=== PATIENT | male | born 1960 | race African-American/Black ===

== ENCOUNTER → 2017-05-08 | Outpatient (CLI) | payer OTHER ==
[~2017-05-08] MED LIST: DILA100C PO; NAPR500T PO; ROBA500T PO
--- NOTE | 2017-05-09 02:58 | REP ---
Clinical: Seizure. Technique: AP, lateral views. Findings: Alignment and kyphosis is maintained. Age related changes are appreciated along with mild nonacute compression deformity at T11 which is stable compared to CT dated 03/15/2017. Impression: Age related changes. Old T11 compression deformity. Signed by Aj Renee MD 05/09/2017 02:50 A
--- NOTE | 2017-05-09 02:58 | REP ---
Clinical: Seizure. Technique: AP, lateral, bilateral oblique, and coned-down views. Findings: Alignment and lordosis is maintained. The vertebral bodies including transverse process and spinous processes are intact and normal. There is no evidence for acute fracture / compression injury or subluxation. No evidence for spondylolysis or spondylolisthesis. No significant degenerative change is noted. Old T11 compression deformity. Impression: Normal lumbosacral spine radiograph series. Old T11 compression deformity. Signed by Aj Renee MD 05/09/2017 02:50 A
--- NOTE | 2017-05-09 03:01 | REP ---
Clinical: Seizure. Technique: AP, lateral, flexion/extension, bilateral oblique, and open-mouth views. Findings: Alignment and lordosis is maintained. There is no evidence for acute fracture / compression injury or subluxation. Mild/moderate multilevel degenerative changes are appreciated. Oblique views demonstrate patent neural foramen. Open mouth view demonstrates normal C1-C2 articulation and odontoid process. Impression: Mild/moderate multilevel degenerative changes are appreciated. Signed by Aj Renee MD 05/09/2017 02:52 A
--- NOTE | 2017-05-09 03:03 | REP ---
Clinical: Seizure. Technique: Internal rotation, external rotation, and Y view left shoulder. Findings: No acute fracture or dislocation. The acromioclavicular and glenohumeral joints are intact. Mild cortical changes consistent with age related degenerative changes. Sub acromial space is normal. Surrounding soft tissues are unremarkable. Impression: Age related changes. No acute fracture or dislocation. Signed by Aj Renee MD 05/09/2017 02:55 A
--- NOTE | 2017-05-09 03:06 | REP ---
Clinical: Seizure. Technique: AP and Lateral views of the right tibia/fibula. Findings: Old fracture of the proximal tibia. No acute fracture or dislocation. Impression: No acute fracture or dislocation. Signed by Aj Renee MD 05/09/2017 02:57 A
== END ==
LOC: M ADAMS 15:38
PROVIDERS: ATTEND Physician Assistant Medical
DX: G40.909 Epilepsy, unspecified, not intractable, without status epilepticus (principal); M79.604 Pain in right leg; M25.512 Pain in left shoulder; M54.9 Dorsalgia, unspecified

== ENCOUNTER → 2017-08-08 | Outpatient (REF) | payer OTHER ==
[2017-08-08 12:49] LABS: BASO % 0.7 % (0.0-1.0); EOS # 0.3 10^3/uL (0.0-0.50); EOS % 5.8 % (0.0-3.0); HEMATOCRIT 44.8 % (42.0-52.0); HEMOGLOBIN 14.6 g/dl (14.0-18.0); IMMATURE GRANULOCYTE % 0.4 % (0-3.0); LYMPH # 2.7 10^3/uL (1.5-4.5); LYMPH % 49.8 % (24.0-44.0); MEAN CORPUSCULAR HEMOGLOBIN 28.7 pg (27.0-33.0); MEAN CORPUSCULAR HGB CONC 32.6 g/dl (32.0-36.5); MEAN CORPUSCULAR VOLUME 88.2 fl (80.0-96.0); MONO # 0.4 10^3/uL (0.0-0.8); MONO % 8.2 % (0.0-5.0); NEUTROPHILS # 1.9 10^3/uL (1.8-7.7); NEUTROPHILS % 35.1 % (36.0-66.0); PLATELET COUNT, AUTOMATED 112 10^3/uL (150-450); RED BLOOD COUNT 5.08 10^6/uL (4.30-6.10); RED CELL DISTRIBUTION WIDTH 13.7 % (11.5-14.5); WHITE BLOOD COUNT 5.3 10^3/uL (4.0-10.0)
[2017-08-08 13:50] LABS: ALBUMIN/GLOBULIN RATIO 1.03 (1.00-1.93); ALKALINE PHOSPHATASE 61 U/L (45-117); ALT/SGPT 45 U/L (12-78); ANION GAP 10 MEQ/L (8-16); AST/SGOT 31 U/L (7-37); BILIRUBIN,TOTAL 0.3 MG/DL (0.2-1.0); BLOOD UREA NITROGEN 15 MG/DL (7-18); CALCIUM LEVEL 9.3 MG/DL (8.5-10.1); CARBON DIOXIDE LEVEL 24 MEQ/L (21-32); CHLORIDE LEVEL 108 MEQ/L (98-107); CHOLESTEROL LEVEL 198 MG/DL (<200); CHOLESTEROL RISK RATIO 3.473 (<5); CREATININE FOR GFR 1.31 MG/DL (0.70-1.30); GLOMERULAR FILTRATION RATE > 60.0 (>56); GLUCOSE, FASTING 96 MG/DL (70-100); HDL CHOLESTEROL 57 MG/DL (>40); NON-HDL-C 141 MG/DL; PHENYTOIN (DILANTIN) < 0.4 UG/ML (10.0-20.0); POTASSIUM SERUM 4.4 MEQ/L (3.5-5.1); SODIUM LEVEL 142 MEQ/L (136-145); TOTAL PROTEIN 7.9 GM/DL (6.4-8.2); TRIGLYCERIDES LEVEL 85 MG/DL (<150)
[2017-08-08 14:11] LABS: TOTAL 25(OH) VITAMIN D 37.6 NG/ML (30.0-100.0)
== END ==
LOC: M SFHCADAM 09:28
DX: Z82.49 Family history of ischemic heart disease and other diseases of the circulatory system (principal); G40.909 Epilepsy, unspecified, not intractable, without status epilepticus

== ENCOUNTER → 2018-02-17 | Outpatient (REF) | payer OTHER ==
[2018-02-17 19:20] LABS: BASO % 0.8 % (0.0-1.0); EOS # 0.1 10^3/uL (0.0-0.50); EOS % 2.9 % (0.0-3.0); HEMATOCRIT 45.4 % (42.0-52.0); HEMOGLOBIN 14.5 g/dl (13.5-17.5); IMMATURE GRANULOCYTE % 0.2 % (0-3.0); LYMPH # 2.6 10^3/uL (1.5-4.5); LYMPH % 53.9 % (24.0-44.0); MEAN CORPUSCULAR HEMOGLOBIN 29.2 pg (27.0-33.0); MEAN CORPUSCULAR HGB CONC 31.9 g/dl (32.0-36.5); MEAN CORPUSCULAR VOLUME 91.5 fl (80.0-96.0); MONO # 0.4 10^3/uL (0.0-0.8); NEUTROPHILS # 1.6 10^3/uL (1.8-7.7); NEUTROPHILS % 33.2 % (36.0-66.0); PLATELET COUNT, AUTOMATED 134 10^3/uL (150-450); RED BLOOD COUNT 4.96 10^6/uL (4.30-6.10); RED CELL DISTRIBUTION WIDTH 13.4 % (11.5-14.5); WHITE BLOOD COUNT 4.9 10^3/uL (4.0-10.0)
[2018-02-17 19:35] LABS: ALBUMIN/GLOBULIN RATIO 1.05 (1.00-1.93); ALKALINE PHOSPHATASE 60 U/L (45-117); ALT/SGPT 34 U/L (12-78); ANION GAP 6 MEQ/L (8-16); AST/SGOT 22 U/L (7-37); BILIRUBIN,TOTAL 0.3 MG/DL (0.2-1.0); BLOOD UREA NITROGEN 16 MG/DL (7-18); C REACTIVE PROTEIN QUANTITATIV < 0.30 MG/DL (0.00-0.30); CARBON DIOXIDE LEVEL 26 MEQ/L (21-32); CHLORIDE LEVEL 109 MEQ/L (98-107); CREATININE FOR GFR 1.26 MG/DL (0.70-1.30); GLOMERULAR FILTRATION RATE > 60.0 (>56); GLUCOSE, FASTING 84 MG/DL (70-100); POTASSIUM SERUM 4.5 MEQ/L (3.5-5.1); RHEUMATOID FACTOR QUANT < 10.0 IU/ML (<15.0); SODIUM LEVEL 141 MEQ/L (136-145); TOTAL PROTEIN 7.8 GM/DL (6.4-8.2)
[2018-02-17 20:25] LABS: ERYTHROCYTE SEDIMENTATION RATE 9 mm/hr (0-20)
[2018-02-20 00:08] LABS: ANA (HEP2) Negative (.); Lyme Disease IgG Ab 18 kDa Ban Absent (.); Lyme Disease IgG Ab 23 kDa Ban Absent (.); Lyme Disease IgG Ab 28 kDa Ban Absent (.); Lyme Disease IgG Ab 30 kDa Ban Absent (.); Lyme Disease IgG Ab 39 kDa Ban Absent (.); Lyme Disease IgG Ab 41 kDa Ban Absent (.); Lyme Disease IgG Ab 45 kDa Ban Absent (.); Lyme Disease IgG Ab 58 kDa Ban Absent (.); Lyme Disease IgG Ab 66 kDa Ban Absent (.); Lyme Disease IgG Ab 93 kDa Ban Absent (.); Lyme Disease IgG West Blot Int Negative (.); Lyme Disease IgG/IgM Antibodie <0.91 ISR (0.00-0.90); Lyme Disease IgM Ab 23 kDa Ban Present (.); Lyme Disease IgM Ab 39 kDa Ban Absent (.); Lyme Disease IgM Ab 41 kDa Ban Absent (.); Lyme Disease IgM Ab Quantitati 0.87 index (0.00-0.79); Lyme Disease IgM West Blot Int Negative (.)
[2018-02-20 00:08] LABS: CYCLIC CITRULLINATED PEPTIDE 9 units (0-19)
== END ==
LOC: M SFHCADAM 14:07
DX: M79.604 Pain in right leg (principal); M25.512 Pain in left shoulder; M54.5 Low back pain

== ENCOUNTER → 2018-07-08 | Outpatient (REF) ==
[~2018-07-08] MED LIST changes: +NAPR-50 PO; -NAPR500T PO
--- NOTE | 2018-07-09 02:26 | REP ---
Clinical: Pain. Technique: Internal rotation, external rotation, and Y view of the left shoulder. Findings: Early moderate cortical irregularity and spurring at the acromioclavicular joint is appreciated. Humeral head appears intact and normal. Subtle blunting to the calcified glenoid rim identified. No periarticular calcifications or loose bodies. Surrounding soft tissues are unremarkable. Impression: Mild arthritic degenerative changes. Electronically Signed by Aj Renee MD 07/09/2018 02:18 A
--- NOTE | 2018-07-09 02:48 | REP ---
Clinical: Back pain. Technique: AP, lateral, coned-down views of the lumbosacral spine. Findings: Alignment and lordosis maintained. Vertebral bodies are intact. No acute fracture / compression injury or subluxation. Disc space narrowing with endplate sclerosis and hypertrophic facet changes at L5-S1 cannot be excluded. Remainder examination appears relatively normal for age. Impression: Cannot exclude mild/moderate degenerative spondylosis at L5-S1. Electronically Signed by Aj Renee MD 07/09/2018 02:40 A
== END ==
LOC: M SMT 14:28
PROVIDERS: ATTEND Internal Medicine
DX: Z02.89 Encounter for other administrative examinations (principal)

== ENCOUNTER → 2018-07-31 | Outpatient (REF) | payer OTHER | LOC: M SFHCADAM 13:36 | PROVIDERS: ATTEND Physician Assistant Medical | DX: G40.909 Epilepsy, unspecified, not intractable, without status epilepticus (principal); Z53.9 Procedure and treatment not carried out, unspecified reason ==

== ENCOUNTER 2019-01-10 17:02 | Emergency (ER) | payer OTHER ==
[~2019-01-10] VITALS: Ht 170.2 cm; Wt 90.9 kg
[~2019-01-10 17:02] MED LIST changes: -NAPR-50 PO; +NAPR-837 PO
[2019-01-10 17:15] VITALS: BP 133/71
[2019-01-10] MEDS ORDERED: NS 1,000 ML IV ONE (17:30)
[2019-01-10] MEDS ORDERED: ISOVUE-370 76% 100ML VIAL (Q9967) As Ordered ONE ×2 (17:33→17:48)
[2019-01-10] MEDS ORDERED: ONDANSETRON 4MG/2ML VIAL (J2405) As Ordered ONE (17:59)
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
[2019-01-10] MEDS ORDERED: ONDANSETRON 4MG/2ML VIAL (J2405) IV ONE (18:15)
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
[2019-01-10] MEDS ORDERED: CYCLOBENZAPRINE 10 MG TAB PO ONE (18:45)
[2019-01-10] MEDS ORDERED: KETOROLAC 30 MG/ML VIAL (J1885) IV ONE (18:45)
[2019-01-10] MEDS ORDERED: CYCL10TA PO (18:48)
[2019-01-10] MEDS ORDERED: IBUP-1022 PO (18:48)
[2019-01-10] MEDS ORDERED: NORCO 5/325MG TABLET (BULK FOR ED) PO ONE (19:00)
== END 2019-01-10 19:39 | disposition home or self-care (01) ==
LOC: M ED 17:02 → EDBD 17:02 → M ED 19:39
DX: M62.838 Other muscle spasm (principal); F33.9 Major depressive disorder, recurrent, unspecified; G40.909 Epilepsy, unspecified, not intractable, without status epilepticus; Z79.899 Other long term (current) drug therapy; F17.210 Nicotine dependence, cigarettes, uncomplicated
CPT/HCPCS: 70450; 71260; 72125; 74177; 80047; 96361; 96374; 96375; 99284; J1885; J2405; Q9967

== ENCOUNTER → 2019-01-21 | Outpatient (CLI) | payer OTHER ==
[~2019-01-21] MED LIST changes: +CYCL10TA PO; +IBUP-1022 PO
--- NOTE | 2019-01-21 10:31 | REP ---
Clinical: Right shoulder pain. Technique: Internal rotation, external rotation, and Y view of the right shoulder. Findings: Age-related arthritic changes include cortical irregularity at the acromioclavicular joint with subtle inferior spurring as well as increase sclerosis and blunting to the calcified glenoid rim. The subacromial space is normal. Small calcification encasing to the humeral greater tuberosity suggests mild calcific tendinopathy. Impression: Mild degenerative changes with possible mild calcific tendinopathy. Electronically Signed by Aj Renee MD 01/21/2019 10:23 A
== END ==
LOC: M ADAMS 10:09
PROVIDERS: ATTEND Physician Assistant Medical
DX: M25.511 Pain in right shoulder (principal)

== ENCOUNTER → 2019-02-11 | Outpatient (REF) | payer OTHER ==
[2019-02-11 17:16] LABS: BASO % 0.8 % (0.0-1.0); EOS # 0.5 10^3/uL (0.0-0.5); EOS % 10.6 % (0.0-3.0); HEMATOCRIT 46.3 % (42.0-52.0); HEMOGLOBIN 14.7 g/dl (13.5-17.5); LYMPH # 2.5 10^3/uL (1.5-5.0); MEAN CORPUSCULAR HEMOGLOBIN 29.4 pg (27.0-33.0); MEAN CORPUSCULAR HGB CONC 31.7 g/dl (32.0-36.5); MEAN CORPUSCULAR VOLUME 92.6 fl (80.0-96.0); MONO # 0.5 10^3/uL (0.0-0.8); MONO % 9.5 % (0.0-5.0); NEUTROPHILS # 1.3 10^3/uL (1.5-8.5); NEUTROPHILS % 27.9 % (36.0-66.0); PLATELET COUNT, AUTOMATED 128 10^3/uL (150-450); WHITE BLOOD COUNT 4.8 10^3/uL (4.0-10.0)
[2019-02-11 18:04] LABS: ALBUMIN 3.8 GM/DL (3.2-5.2); ALT/SGPT 34 U/L (12-78); BILIRUBIN,TOTAL 0.3 MG/DL (0.2-1.0); BLOOD UREA NITROGEN 13 MG/DL (7-18); CARBON DIOXIDE LEVEL 31 MEQ/L (21-32); CHLORIDE LEVEL 106 MEQ/L (98-107); CREATININE FOR GFR 1.27 MG/DL (0.70-1.30); GLOMERULAR FILTRATION RATE > 60.0 (>49); GLUCOSE, FASTING 90 MG/DL (70-100); POTASSIUM SERUM 4.1 MEQ/L (3.5-5.1); SODIUM LEVEL 142 MEQ/L (136-145); TOTAL PROTEIN 7.6 GM/DL (6.4-8.2)
[2019-02-11 18:05] LABS: PHENYTOIN (DILANTIN) 0.7 UG/ML (10.0-20.0)
== END ==
LOC: M LABNEURO 12:05
PROVIDERS: ATTEND Psychiatry & Neurology Neurology
DX: R56.9 Unspecified convulsions (principal)

== ENCOUNTER → 2019-05-25 | Outpatient (CLI) | payer OTHER ==
--- NOTE | 2019-05-25 10:27 | REP ---
INDICATION: Osteoarthritis PROCEDURE: MR lumbar spine without contrast COMPARISON STUDIES: No prior similar studies FINDINGS: On the sagittal T2-weighted images, no limiting canal stenosis. Vertebral heights and disc heights are preserved. No shamir malalignments. Conus ends normally at L1 level. On review of axial images, At L1-2, no significant canal or foraminal narrowing At L2-3, no significant canal or foraminal narrowing At L3-4, disc bulge with mild canal narrowing and mild bilateral foraminal narrowing At L4-5 disc bulge with mild canal narrowing and mild bilateral foraminal narrowing At L5 S1 no significant canal or foraminal narrowing. On the STIR images, no significant STIR signal abnormality to suggest soft tissue or ligamentous injury. There is a 2 cm cysts in the right kidney. A renal cyst on the left is incompletely imaged. CONCLUSION: No acute findings. Minor degenerative changes. Electronically Signed by Bharathi Delgado MD 05/25/2019 10:19 A
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
== END ==
LOC: M RAD 08:47
PROVIDERS: ATTEND Physician Assistant
DX: M19.90 Unspecified osteoarthritis, unspecified site (principal)

== ENCOUNTER → 2020-03-10 | Outpatient (REF) | payer OTHER ==
[~2020-03-10] MED LIST changes: +CYCL-707 PO; -CYCL10TA PO
== END ==
LOC: M SFHCADAM 14:50
PROVIDERS: ATTEND Physician Assistant Medical
DX: G40.909 Epilepsy, unspecified, not intractable, without status epilepticus (principal)

== ENCOUNTER → 2020-03-18 | Outpatient (CLI) | payer OTHER | LOC: M LABSMTC 10:26 | PROVIDERS: ATTEND Anesthesiology | DX: Z01.818 Encounter for other preprocedural examination (principal); Z20.828 Contact with and (suspected) exposure to other viral communicable diseases | CPT/HCPCS: C9803; U0003 ==

== ENCOUNTER → 2021-01-15 | Outpatient (CLI) | payer OTHER ==
--- NOTE | 2021-01-18 10:11 | REP ---
INDICATION: SEIZURE DISORDER, NECK PAIN, NUMBNESS IN L HAND, L ARM PAIN COMPARISON: 07/08/2018 TECHNIQUE: Internal rotation, external rotation, and Y view. FINDINGS: Mild cortical irregularity at the acromioclavicular joint and appearance to the glenohumeral joint appears unchanged. No acute fracture or dislocation. Subacromial space is normal. IMPRESSION: Stable age-related degenerative changes <Electronically signed by Aj Renee > 01/18/21 [id number]
--- NOTE | 2021-01-18 10:13 | REP ---
INDICATION: SEIZURE DISORDER, NECK PAIN, NUMBNESS IN L HAND, L ARM PAIN. COMPARISON: 05/08/2017 TECHNIQUE: AP, lateral, flexion/extension, bilateral oblique, swimmer's and open mouth views of the cervical spine FINDINGS: Moderate multilevel degenerative changes include subtle endplate sclerosis with minimal disc space narrowing and marginal osteophytes. Alignment and lordosis maintained. Vertebral bodies are intact and without acute fracture/compression injury or subluxation. Neural foramen are patent. C1-C2 articulation and odontoid process are normal. IMPRESSION: Mild multilevel degenerative changes. <Electronically signed by Aj Renee > 01/18/21 1007
== END ==
LOC: M ADAMS 16:17
PROVIDERS: ATTEND Physician Assistant Medical
DX: G40.909 Epilepsy, unspecified, not intractable, without status epilepticus (principal); M54.2 Cervicalgia; M25.512 Pain in left shoulder; M79.602 Pain in left arm; R20.0 Anesthesia of skin

== ENCOUNTER → 2021-09-18 | Outpatient (REF) | payer OTHER ==
[2021-09-18 17:43] LABS: APPEARANCE, URINE CLEAR (CLEAR); BACTERIA, URINE AUTO NEGATIVE (NEGATIVE); BILIRUBIN, URINE AUTO NEGATIVE (NEGATIVE); BLOOD, URINE BLOOD NEGATIVE (NEGATIVE); COLOR, URINE YELLOW (YELLOW); GLUCOSE, URINE (UA) AUTO NEGATIVE (NEGATIVE); KETONE, URINE AUTO NEGATIVE (NEGATIVE); LEUKOCYTE ESTERASE, URINE AUTO NEGATIVE (NEGATIVE); MUCUS, URINE SMALL (NEGATIVE); NITRITE, URINE AUTO NEGATIVE (NEGATIVE); PROTEIN, URINE AUTO NEGATIVE (NEGATIVE); RBC, URINE AUTO 0 /HPF (0-3); SQUAMOUS EPITHELIAL CELL UR AU 0 /HPF (0-6); UROBILINOGEN, URINE AUTO 0.2 mg/dL (0.0-2.0); WBC, URINE AUTO 0 /HPF (0-3)
== END ==
LOC: M SFHCADAM 17:07
PROVIDERS: ATTEND Physician Assistant Medical
DX: R35.0 Frequency of micturition (principal)

== ENCOUNTER → 2021-10-24 | Outpatient (CLI) | payer OTHER | LOC: M WHC 07:53 | PROVIDERS: ATTEND Physician Assistant Medical | DX: N28.1 Cyst of kidney, acquired (principal) ==